=== PATIENT | female | born 1985 | race Caucasian/White ===

== ENCOUNTER 2022-01-23 12:44 | Emergency (ER) | payer OTHER, SELFPAY ==
[2022-01-23 12:46] VITALS: BP 121/76; PULSE 106; RESP 16; TEMP 36.6; O2SAT 99
[2022-01-23 13:27] VITALS: BP 101/66; PULSE 99; RESP 16; O2SAT 99
--- NOTE | 2022-01-23 14:02 | ED.PREGNANCY ---
HPI - General Chief complaint: Vaginal Bleeding Stated complaint: miscarriage Time Seen by Provider: 01/23/22 13:30 History of Present Illness HPI Narrative: Patient is a 36-year-old female at approximately 8 weeks gestation presenting for lab work. Patient states that she had her first ultrasound with her [employer] yesterday and was informed that her fetus did not have a heartbeat. Patient decided on misoprostol for treatment which she took last night around 9 PM. States that her [employer] told her to come in today to have lab work done. States that she did not have blood work done yesterday. States that her [employer] told her to call on Tuesday morning for close follow-up. Patient states that she had some brown vaginal discharge but she denies vaginal bleeding. States that she had mild cramping yesterday which has resolved. She denies any other complaints or concerns. Related Data Home Medications Medication Instructions Recorded Confirmed escitalopram oxalate 10 mg tablet mg 01/12/19 norethindrone 1 mg-ethinyl tablet 01/12/19 estradiol 20 mcg (21)-iron 75 mg (7) tablet (03/05 (28)) Allergies Allergy/AdvReac Type Severity Reaction Status Date / Time No Known Allergies Allergy Verified 01/12/19 19:18 Review of Systems Review of Systems: All systems reviewed & are unremarkable except as noted in HPI and below Exam Narrative: GENERAL: Well-appearing, well-nourished, and in no acute distress. HEAD: Normocephalic, atraumatic. EYES: PERRLA and EOMI. ENT: Nares clear, no rhinorrhea or epistaxis. Mucous membranes moist. NECK: Supple. CHEST: Clear to auscultation. No respiratory distress. HEART: Regular rate and rhythm. No murmur heard. Normal peripheral pulses. ABDOMEN: Soft, nontender, nondistended, normal active bowel sounds. EXTREMITIES: Normal range of motion. No edema. SKIN: Warm, dry, no rash. NEURO: No focal deficits. Alert and oriented x3. PSYCH: Normal mood and affect. Course Vital Signs Vital signs: Vital Signs Temperature 97.8 F 01/23/22 12:46 Pulse Rate 106 H 01/23/22 12:46 Respiratory Rate 16 01/23/22 12:46 Blood Pressure 121/76 01/23/22 12:46 Pulse Oximetry 99 01/23/22 12:46 Oxygen Delivery Room Air 01/23/22 12:46 Temperature 97.8 F 01/23/22 12:46 Pulse Rate 83 01/23/22 15:43 Respiratory Rate 16 01/23/22 15:43 Blood Pressure 101/66 01/23/22 13:27 Pulse Oximetry 98 01/23/22 15:43 Oxygen Delivery Room Air 01/23/22 13:27 MDM - OB/Uterine Contractions MDM Narrative Medical decision making narrative: Patient is a 36-year-old female at 8 weeks gestation presenting for lab work. Patient was informed yesterday that her fetus did not have a heartbeat so she took misoprostol last night. We will check beta-hCG and she will follow-up with [employer] on Tuesday to ensure it is downtrending. Beta-hCG is 48,540. Patient informed of this result and will call her [employer] on Tuesday morning. Appropriate return precautions given. Patient discharged in stable condition. Lab Data Labs: Lab Results 01/23/22 Range/Units 14:24 Beta HCG, Quant 37068.00 mIU/ML Critical Care Time Critical Care Time Critical Care Time: No Discharge Plan Discharge Clinical Impression: Missed Patient Disposition: Home, Self-Care Condition: Stable Instructions: Antibiotic Form, Miscarriage (ED) Additional Instructions: Your beta-HCG today is 48,540. Please follow-up with your [employer] in 2 days as discussed. If you experience severe abdominal pain, vaginal bleeding, vomiting, or other concerning symptoms, please return to the ER. Prescriptions: No Action escitalopram oxalate 10 mg tablet norethindrone-e.estradiol-iron [Junel FE 03/05 (28)] 1 mg-20 mcg (21)/75 mg (7) tablet albuterol sulfate [Ventolin HFA] 90 mcg/actuation HFA aerosol inhaler 2 puff INHALATION QID Qty: 18 0RF prednisone 20 mg tablet
[2022-01-23 15:43] VITALS: PULSE 83; RESP 16; O2SAT 98
== END 2022-01-23 15:44 | disposition home or self-care (01) ==
PROVIDERS: Emergency Provider Emergency Medicine; PCP Physician Assistant
DX: O02.1 Missed abortion (principal)
CPT/HCPCS: 36415; 84702; 99283

== ENCOUNTER 2022-03-31 16:55 | Emergency (ER) | payer OTHER, SELFPAY ==
[2022-03-31 17:11] VITALS: BP 114/65; PULSE 64; RESP 16; TEMP 36.7; O2SAT 99
--- NOTE | 2022-03-31 17:43 | ED.DENTAL ---
HPI - Dental/Oral General Chief complaint: Dental/Oral Stated complaint: Dental Pain Time Seen by Provider: 03/31/22 17:44 Source: patient Mode of arrival: ambulatory Limitations: no limitations History of Present Illness HPI Narrative: 36-year-old female presents with complaint of right upper dental pain for several weeks. Reports that 1st her filling fell out of her tooth, and then tooth broke while she was eating it. She reports that tooth is discolored and she thinks it is . Patient has appointment with her dentist in April. All systems reviewed and negative except as noted above. Related Data Home Medications Medication Instructions Recorded Confirmed cetirizine 10 mg tablet 10 mg PO DAILY 03/31/22 03/31/22 Allergies Allergy/AdvReac Type Severity Reaction Status Date / Time No Known Allergies Allergy Verified 03/31/22 17:00 Review of Systems Review of Systems: CONSTITUTIONAL: Denies fever, chills, or sweats. EYES: Denies visual changes, redness, or discharge. ENT: Denies rhinorrhea, congestion, sore throat, or otalgia. Reports right upper dental pain. CARDIOVASCULAR: Denies chest pain, palpitations, or edema. RESPIRATORY: Denies cough or dyspnea. GASTROINTESTINAL: Denies abdominal pain, nausea, vomiting, or diarrhea. GENITOURINARY: Denies dysuria or hematuria. SKIN: Denies rash or itching. MUSCULOSKELETAL: Denies back pain, joint pain, or myalgia. NEUROLOGIC: Denies headache, numbness, or weakness. PSYCHIATRIC: Denies anxiety or depression. All other systems reviewed are negative, except as documented in HPI. PMFSH Comments At time of signature, agree with nursing past medical, surgical, social and family history. There is no relevant family history pertinent to the presenting complaint. Exam Narrative: GENERAL: This is a well-nourished, well-developed patient, in no apparent distress. HEAD: normocephalic, atraumatic. EYES: PERRL. Sclera clear/white. Vision is grossly intact. EARS: External ears normal, NOSE: External nose normal MOUTH: tooth #5 broken, cordova in color. erythema and swelling to gums. no fluctuance. NECK: Neck supple, non-tender without lymphadenopathy, masses or thyromegaly. CARDIOVASCULAR: Regular rate and rhythm without murmurs, gallops, or rubs. RESPIRATORY: Clear to auscultation. Breath sounds equal bilaterally. No wheezes, rales, or rhonchi. SKIN: warm, Dry, intact with no suspicious lesions or rash, good texture and turgor. NEURO: awake, alert, and oriented to person, place and time. There were no obvious focal neurologic abnormalities. EXTREMITIES: No joint tenderness, effusion, or edema noted. Course Course Level of Care: Express Care Visit Vital Signs Vital signs: Vital Signs Temperature 36.7 C 03/31/22 17:11 Pulse Rate 64 03/31/22 17:11 Respiratory Rate 16 03/31/22 17:11 Blood Pressure 114/65 03/31/22 17:11 Pulse Oximetry 99 03/31/22 17:11 Oxygen Delivery Room Air 03/31/22 17:11 Temperature 36.7 C 03/31/22 17:11 Pulse Rate 64 03/31/22 17:11 Respiratory Rate 16 03/31/22 17:11 Blood Pressure 114/65 03/31/22 17:11 Pulse Oximetry 99 03/31/22 17:11 Oxygen Delivery Room Air 03/31/22 17:11 Reviewed MDM - Dental/Oral MDM Narrative Medical decision making narrative: Patient is aware of diagnosis, understands and agrees to treatment plan. Anticipatory guidance given. Patient agrees to follow-up as directed and is aware of reasons to seek care at the emergency department. Portions of this record may have been created with voice recognition software Discharge Plan Discharge Clinical Impression: Pain, dental Patient Disposition: Home, Self-Care Condition: Stable Instructions: Antibiotic Form, Toothache (ED) Additional Instructions: Take antibiotic as prescribed until gone. Follow-up with dentist at next available appointment. Prescriptions: New amoxicillin 875 mg tablet 875
== END 2022-03-31 17:54 | disposition home or self-care (01) ==
PROVIDERS: Emergency Provider Nurse Practitioner Family; PCP Physician Assistant
DX: K08.89 Other specified disorders of teeth and supporting structures (principal); K21.9 Gastro-esophageal reflux disease without esophagitis
CPT/HCPCS: 99213; G0463

== ENCOUNTER 2022-04-15 14:46 | Emergency (ER) | payer OTHER, SELFPAY ==
[2022-04-15 14:59] VITALS: BP 119/78; PULSE 89; RESP 16; TEMP 37.1; O2SAT 100
--- NOTE | 2022-04-15 15:55 | ED.WOUNDLAC ---
HPI - Wound/Laceration General Chief Complaint: Wound/Laceration Stated Complaint: dog bite Time Seen by Provider: 04/15/22 15:46 Source: patient Mode of arrival: ambulatory Limitations: no limitations and language barrier History of Present Illness HPI narrative: patient is a 36 year old female presents with laceration 2 face after a dog bite at 2:00 p.m. today. patient unsure if the the dog is vaccinated. Occurred at the grooming facility. patient denies any pain on opening mouth, swelling or redness. last tetanus shot was 6 years ago Related Data Home Medications Medication Instructions Recorded Confirmed cetirizine 10 mg tablet 10 mg PO DAILY 03/31/22 03/31/22 Allergies Allergy/AdvReac Type Severity Reaction Status Date / Time No Known Allergies Allergy Verified 04/15/22 15:14 Review of Systems Review of Systems: CONSTITUTIONAL: Denies malaise, chills, sweats, or fever. EYES: Denies visual changes, redness, or discharge. ENT: Denies rhinorrhea, congestion, sinus pain, otalgia or sore throat. CARDIOVASCULAR: Denies chest pain, palpitations, or edema. RESPIRATORY: Denies cough or dyspnea. GASTROINTESTINAL: Denies abdominal pain, nausea, vomiting, diarrhea, bloody, or mucous stools. GENITOURINARY: Denies dysuria or hematuria. SKIN: Denies rash or itching. Reports dog bite to chin and left jaw MUSCULOSKELETAL: Denies back pain, joint pain, or myalgia. NEUROLOGIC: Denies numbness, weakness, or headache. PSYCHIATRIC: Denies anxiety or depression. All systems reviewed & are unremarkable except as noted in HPI and below PMFSH Comments At time of signature, agree with nursing past medical, surgical, social and family history. There is no relevant family history pertinent to the presenting complaint. Exam Narrative: GENERAL: Well-appearing, well-nourished, and in no acute distress. HEAD: Normocephalic, atraumatic. EYES: PERRLA, conjunctivae clear, and EOMI. ENT: Nares clear, no rhinorrhea or epistaxis. Mucous membranes moist. NECK: Supple. CHEST: No respiratory distress. Clear to auscultation. No bony deformities, no asymmetry. Speaks in full sentences. HEART: Regular rate and rhythm EXTREMITIES: Normal range of motion. No edema. Normal strength and sensation. SKIN: Warm, dry, no rash. 2 cm laceration into subcutaneous tissue to right of chin and another 2 cm laceration to left jaw midline, no surrounding erythema, edema, induration. Well approximated NEURO: Alert and oriented x3. No focal deficits. Course Course Emergency Course: Patient is aware of diagnosis, understands and agrees to treatment plan. Anticipatory guidance given. Patient agrees to follow-up as directed and is aware of reasons to seek care at the emergency department. Portions of this record may have been created with voice recognition software Level of Care: Express Care Visit Vital Signs Vital signs: Vital Signs Temperature 37.1 C 04/15/22 14:59 Pulse Rate 89 04/15/22 14:59 Respiratory Rate 16 04/15/22 14:59 Blood Pressure 119/78 04/15/22 14:59 Pulse Oximetry 100 04/15/22 14:59 Oxygen Delivery Room Air 04/15/22 14:59 Temperature 37.1 C 04/15/22 14:59 Pulse Rate 89 04/15/22 14:59 Respiratory Rate 16 04/15/22 14:59 Blood Pressure 119/78 04/15/22 14:59 Pulse Oximetry 100 04/15/22 14:59 Oxygen Delivery Room Air 04/15/22 14:59 Reviewed Procedures Laceration Laceration 1: Date: 04/15/22 Site: face Side (If applicable): left (Jaw) Size (cm): 2 Description: linear and clean Depth: simple, single layer Pre-repair: irrigated ====== Skin Level ====== Skin layer closed with: steri strips ( loosely approximated) ====== Subcutaneous Layer ====== ====== Muscle Layer ====== ====== Tendon Layer ====== Laceration 2: Date: 04/15/22 Time: 16:09 Site: face Side (If applicable): right
[2022-04-15] MEDS: TETANUS,DIPHTHERIA,AC PERTUSSIS ADULT (0.5 ML) BOOSTRIX IM (16:00)
--- NOTE | 2022-04-15 16:16 | PC.NURSE ---
nnp in to do steri strips.
== END 2022-04-15 16:20 | disposition home or self-care (01) ==
PROVIDERS: Emergency Provider Nurse Practitioner Family; PCP Physician Assistant
DX: S01.81XA Laceration without foreign body of other part of head, initial encounter (principal); Z23 Encounter for immunization; W54.0XXA Bitten by dog, initial encounter; Y92.89 Other specified places as the place of occurrence of the external cause
CPT/HCPCS: 90715; 99213; G0463

== ENCOUNTER 2023-11-08 14:04 | Outpatient (CLI) | payer OTHER, SELFPAY ==
--- NOTE | ~2023-11-08 | XR_ITS ---
XR hand RT min 3V Ordering provider: Ivone Gutierrez, [place] History: . plantar fascia, pain in rt hands X 1 YR MCP AREA NKI . Comparison: None. FINDINGS: BONES: No acute fracture or dislocation. JOINT SPACES: Normal. SOFT TISSUES: Normal. IMPRESSION: No acute osseous abnormality right hand. Reviewed, dictated and finalized at location A.
--- NOTE | ~2023-11-08 | XR_ITS ---
XR foot LT min 3V Ordering provider: Ivone Gutierrez, ALISSON History: . plantar fascia PAIN TO LT HEEL X 1 YR NKI . Comparison: None. FINDINGS: BONES: No acute fracture or dislocation. Calcaneal spur. JOINT SPACES: Normal. No tarsal coalition. SOFT TISSUES: Soft tissue swelling over the calcaneus is not excluded.. IMPRESSION: No acute osseous abnormality left foot. Reviewed, dictated and finalized at location A.
== END 2023-11-08 14:05 | disposition home or self-care (01) ==
PROVIDERS: PCP Physician Assistant; Visit Provider Physician Assistant
DX: M72.2 Plantar fascial fibromatosis (principal); M79.641 Pain in right hand
CPT/HCPCS: 73130; 73630